=== PATIENT | male | born 1945 | race Caucasian/White ===

== ENCOUNTER 2018-03-21 10:14 | Day surgery (SDC) | payer MEDICARE ==
[2018-03-21] MEDS ORDERED: PROPOFOL 10 MG/ML VIAL IV ONE (10:15)
[2018-03-21] MEDS ORDERED: LIDOCAINE 2% MDV (20MG/ML) 20ML VIAL IV ONE (10:15)
--- NOTE | 2018-03-22 12:30 | Operative Note ---
DATE OF SURGERY: 03/21/2018 OPERATION: COLONOSCOPY with cold snare polypectomy x5 and hemoclip x2 of sigmoid polypectomy site. PREOPERATIVE DIAGNOSIS: Colon polyps. POSTOPERATIVE DIAGNOSIS: Colon polyps. PREPARATION QUALITY: Good at best. SPECIMENS: Ascending colon, descending colon, and sigmoid colon. ESTIMATED BLOOD LOSS: Minimum. COMPLICATIONS: None apparent. PROCEDURE: After informed consent was obtained from the patient, he was placed in the left lateral decubitus position in the endoscopy suite, sedated and monitored by the department of anesthesia. Digital rectal exam was unremarkable. A well-lubricated [id number] colonoscope was inserted into the rectum and advanced to the cecum. The cecum was unremarkable. The ileocecal valve and appendiceal orifice were unremarkable. The ascending colon revealed 2 polyps ranging in size from 4-6 mm each removed with a cold snare and retrieved. Minimal bleeding was noted at the sites. The transverse colon was unremarkable. The descending colon revealed two 4 mm polyps each removed with a cold snare. In the sigmoid colon, there was a polypoid abnormality approximately 7 cm in diameter and quite sessile. This was removed in piecemeal fashion with a cold snare. Minimal bleeding was noted at the site. Two hemoclips were applied to the site for wound closure purposes. There was scant bleeding prior to and none after the clips had been placed. The remainder of the sigmoid colon and rectum were unrevealing. The endoscope was straightened, the rectal ampulla deflated, and the endoscope was removed. RECOMMENDATIONS: The patient should resume his medications and diet. He will require repeat exam in 3 years for continued surveillance. As always, thank you for allowing me to participate in the healthcare of your patients. CC: MD HAL Garland
== END 2018-03-21 11:54 | disposition home or self-care (01) ==
LOC: HOP 10:14
PROVIDERS: ATTEND Internal Medicine Gastroenterology
DX: Z12.11 Encounter for screening for malignant neoplasm of colon (principal); Z86.010 Personal history of colon polyps; D12.2 Benign neoplasm of ascending colon; D12.4 Benign neoplasm of descending colon; D12.5 Benign neoplasm of sigmoid colon; I10 Essential (primary) hypertension; E11.9 Type 2 diabetes mellitus without complications; Z79.84 Long term (current) use of oral hypoglycemic drugs; E78.00 Pure hypercholesterolemia, unspecified